=== PATIENT | male | born 1990 | race Caucasian/White ===

== ENCOUNTER 2016-07-10 05:19 | Day surgery (SDC) | payer BC, OTHER ==
[~2016-07-10] VITALS: Ht 172.7 cm; Wt 74.8 kg
--- NOTE | ~2016-07-10 | H ---
[facility] [place] [address] HISTORY AND PHYSICAL Name: DEVANG PACK Room #: 150-4 [facility] M.R.#: [id number] Admission: 07/10/16 Attend Phys: Carlitos Ahuja MD Discharge: Date of : 89 Report #: [id number] THIS REPORT FOR: //name// CC: [facility]OMARA physician/PCP Carlitos Ahuja DATE OF SERVICE: 07/10/2016 DATE OF SURGERY: 07/10/2016 CHIEF COMPLAINT: Perforation of the eardrum, chronic. HISTORY OF PRESENT ILLNESS: The patient is a 26-year-old gentleman who was originally seen back in 2013 with at that time a several year history of nontraumatic perforation, left tympanic eardrum without a prior history of ear surgery, ear infections or other conditions that may have contributed to the eardrum perforation. At that time, he was found to have in the left ear a small perforation in the anterior superior TM just anterior to the malleus with a small area of myringosclerosis posterior to this. There was no significant hearing loss at that time, however, there was slight difference between the 2 ears. At that time, he was given the option of consideration for surgical closure of the perforation, but he preferred instead observation only. He returned to the office in May of this last year for followup of the perforation. He had no other concerns at that time. Examination still demonstrated an approximately 10% anterior perforation present that was dry with healthy-appearing middle ear. Again, I gave him the option of consideration of closure of this perforation to make the ear water safe. It is not likely at all to improve his hearing. I discussed the risks and benefits of surgical intervention included but not limited to failure of the graft to take, need for possible additional surgery, worsening of hearing including the rare chance of deafness, change or loss of sense of taste, postoperative otorrhea, postoperative infection requiring further therapy, infection at the graft site. I also discussed the option of non-treatment as he has been doing this with water precautions and followup. After discussion with the patient, he does wish to proceed forward at this time. The plan is for closure of left tympanic membrane perforation. ALLERGIES TO MEDICATION: None. MEDICATIONS ON ADMISSION: Include ProAir HFA inhaler as needed. PAST MEDICAL AND SURGICAL HISTORY: Noncontributory. FAMILY HISTORY: Noncontributory. REVIEW OF SYSTEMS: Negative for any GI, , cardiovascular, pulmonary or [address] [address] HISTORY AND PHYSICAL Name: DEVANG PACK Room #: 150-4 [facility]#: [id number] Admission: 07/10/16 Attend Phys: Carlitos Ahuja MD Discharge: Date of : 89 Report #: [id number] hemapoietic issues. PHYSICAL EXAMINATION: VITAL SIGNS: Height 5 feet 8 inches, weight of 160 pounds, blood pressure 137/95. HEENT: As already outlined for the left ear. Right ear unremarkable. Nares, oral cavity, oropharynx stable. NECK: Normal. CHEST: Clear. CARDIOVASCULAR: Regular rate and rhythm. 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 Plan would be for attempt of surgical closure with graft myringoplasty as the primary mode. <ELECTRONICALLY SIGNED> By: Carlitos Ahuja MD 07/10/16 0737 [id number] Carlitos Ahuja MD /nt
--- NOTE | ~2016-07-10 | O ---
[facility] [place] [address] OPERATIVE REPORT Name: DEVANG PACK Room #: 150-4 [facility] M.R.#: [id number] Admission: 07/10/16 Attend Phys: Carlitos Ahuja MD Discharge: Date of : 89 Report #: [id number] THIS REPORT FOR: //name// CC: [facility] physician/PCP Carlitos Ahuja DATE OF SURGERY: 07/10/2016. PREOPERATIVE DIAGNOSIS: Left anterior tympanic membrane perforation. POSTOPERATIVE DIAGNOSIS: Left anterior tympanic membrane perforation. PROCEDURE: Left fat graft myringoplasty. SURGEON: Carlitos Ahuja M.D. ANESTHESIA: General LMA. INDICATIONS: See H and P. FINDINGS: There is a small perforation in the anterior portion of tympanic membrane just anterior to long process from , the size of perforation was approximately the same size as a number 5 to number 7 Gracia suction tip, there is no middle mucosal disease observed. TECHNIQUE: After identifying the ear and marking appropriately with the patient in the preoperative area he was brought to the operating room. General LMA anesthesia was obtained. The bed was turned appropriate direction, the left ear was exposed. The area was prepped and draped in usual sterile fashion. Operating microscope was brought in the field, ear canal was intubated, debris was removed with perforation was visualized directly, the edges of the perforation were freshened by using a Mona needle to freshen edges and then removed the epithelium back to bleeding tissue with the use of a small cup forceps and that point, the mucosa was inspected and found to be healthy. I used a tab knife and swept underneath the perforation to make there are no epithelial remnants present, none were found. Injected a 1 mL of 1% Xylocaine 1:100,000 epinephrine on the posterior aspect of the left ear lobule, a horizontal incision was made with a 15 blade and using sharp tenotomy scissors, I elevated a subepithelial plane to expose the fat of the ear lobule, sharply harvested a piece of earlobe fat to the appropriate size approximately 1.5 times size of perforation. This is set on the back able to dry. Hemostasis was controlled with cautery. The wound was closed with simple interrupted 4-0 chromic sutures. It was later dressed with antibiotic ointment. Return back to the ear were again under microscopic guidance, the freshen perforation edges were observed directly, I placed a Gelfoam with Ciprodex in [address] [address] OPERATIVE REPORT Name: DEVANG PACK Room #: 150-4 [facility] M.R.#: [id number] Admission: 07/10/16 Attend Phys: Carlitos Ahuja MD Discharge: Date of : 89 Report #: [id number] the middle ear through perforation preparing bed for acceptance of the fat graft and this was brought out in the middle ear space to allow adequate preparation almost up to the level of perforation but not quite. I then gently compressed the fat graft and I placed in a somewhat of a medial onlay fashion, leaving and then used a alice needle brought out the edges underneath the tympanic membrane. A small amount of the fat was allowed to protrude slightly above the surface of the tympanic membrane. Multiple pieces of moistened Gelfoam were then placed on the lateral aspect of tympanic membrane, essentially "sandwiching" the graft in place. The Gelfoam was continued out into the external canal at least alf. Cotton ball was placed in the meatal opening and a Band-Aid was applied. He was allowed to awaken from anesthesia, went to recovery room in stable condition. ESTIMATED BLOOD LOSS: Less than 2 mL. <ELECTRONICALLY SIGNED> By: Carlitos Ahuja MD 07/10/16 1307 [id number] Carlitos Ahuja MD /nt
[~2016-07-10 05:19] MED LIST: AMOXICILLIN 50500 MG PO; LEVAQUIN 500 M500 M2 PO; MUCINEX TA600 MG/TA2 PO; ZYRTEC10 M5 PO
[2016-07-10] MEDS ORDERED: FLONASE 0.05%50 MCG NASAL (08:44)
== END 2016-07-10 12:00 | disposition home or self-care (01) ==
LOC: TBA 05:19 → OR 05:19 → TBA 05:20 → OR 12:00
DX: H72.92 Unspecified perforation of tympanic membrane, left ear (principal)
CPT/HCPCS: 50010; 50101; 50386; 50398; 51527; 56526; 57075; 62110; 62900; 64037; 70005